=== PATIENT | male | born 1980 ===

== ENCOUNTER 2016-11-24 23:49 | Emergency (ER) | payer OTHER ==
[~2016-11-24 23:49] MED LIST: AUGMENTIN875 MG PO
[2016-11-24] MEDS ORDERED: [UNRECOGNIZED DRUG - OTHER] (23:57)
[2017-05-05] MEDS ORDERED: SUDOGEST SINUS1 EACH PO (20:17)
== END 2016-11-25 01:42 ==
LOC: EDMED 23:49
DX: S60.221A Contusion of right hand, initial encounter (principal); W22.8XXA Striking against or struck by other objects, initial encounter; Y92.69 Other specified industrial and construction area as the place of occurrence of the external cause; Y99.0 Civilian activity done for income or pay